=== PATIENT | male | born 1960 | race Caucasian/White ===

== ENCOUNTER 2017-10-06 07:30 | Outpatient (CLI) | payer OTHER ==
--- NOTE | 2017-10-06 09:37 | CT ---
CT LUNG CANCER SCREENING WITHOUT CONTRAST: History: 43 years of smoking in a 56-year-old male. Patient reportedly quit six months ago. Exposure: Dose 2.34 milligray with DAP of 84.70. Comparison: None. FINDINGS: No suspicious pulmonary nodule is evident. No pleural effusion is demonstrated. No pathologically enl arged lymph nodes grossly evident within the mediastinum or axillary regions. Hilar regions are diffi cult to evaluate for lymphadenopathy due to the lack of IV contrast. There is a 1.4 cm hypodensity wi thin the medial left hepatic lobe on image 190 series 2, suspicious for a small cyst. Remaining visua lized upper abdomen is unremarkable. IMPRESSION: 1. Lung Rads category 1 - negative. No suspicious nodules are demonstrated. Continued annual screenin g with low dose CT in 12 months. 2. Medial left hepatic lobe cyst. POS: JAMES
== END 2017-10-06 07:31 | disposition home or self-care (01) ==
LOC: CT 07:30
PROVIDERS: ATTEND Family Medicine
DX: F17.211 Nicotine dependence, cigarettes, in remission (principal); J44.9 Chronic obstructive pulmonary disease, unspecified; I10 Essential (primary) hypertension; K76.89 Other specified diseases of liver
CPT/HCPCS: G0297

== ENCOUNTER 2018-01-13 06:37 | Outpatient (CLI) | payer OTHER | END 2018-01-13 06:38 | disposition home or self-care (01) | LOC: BICULT 06:37 | PROVIDERS: ATTEND Family Medicine | DX: K76.89 Other specified diseases of liver (principal) | CPT/HCPCS: 76705 ==

== ENCOUNTER 2018-02-11 09:40 | Outpatient (CLI) | payer OTHER ==
[2018-02-11] MEDS ORDERED: Gadobenate Dimeglumine 529 MG/1 ML (20ML VIAL) ONE (12:12)
--- NOTE | 2018-02-11 14:42 | MRI ---
MRI OF THE ABDOMEN WITHOUT AND WITH CONTRAST: 02/11/18 COMPARISON: CT chest 10/06/17 . HISTORY: Hepatic cyst seen on prior CT of the chest. Please evaluate further. TECHNIQUE: Multiplanar and multisequence MR images were obtained of the abdomen without and with IV contrast. FINDINGS: There is a nonenhancing 1.4 cm cyst in the anterior aspect of the left lobe of the liver. A subcentim eter nonenhancing focus of high T2 signal in the right lobe of the liver likely represents a smaller cyst. There is a 4.0 cm area of high T2 signal in the left lobe of the liver. After the administratio n of contrast, this demonstrates peripheral puddling and centripetal fill-in consistent with a shawn ioma. No other liver lesions are seen. The gallbladder, kidneys, adrenal glands, spleen, and pancreas are unremarkable. No abdominal adenopa thy is seen. No marrow signal abnormality is present. IMPRESSION: 1. Hepatic hemangioma. 2. Hepatic cysts. 3. No suspicious liver lesion identified. POS: OFF
== END 2018-02-11 09:41 | disposition home or self-care (01) ==
LOC: BICMRI 09:40
PROVIDERS: ATTEND Family Medicine
DX: K76.89 Other specified diseases of liver (principal); D18.03 Hemangioma of intra-abdominal structures
CPT/HCPCS: 70210; 74183; A9579

== ENCOUNTER 2022-07-14 08:27 | Outpatient (CLI) | payer OTHER | END 2022-07-14 08:28 | disposition home or self-care (01) | LOC: BICCT 08:27 | PROVIDERS: ATTEND Student in an Organized Health Care Education/Training Program | DX: Z12.2 Encounter for screening for malignant neoplasm of respiratory organs (principal); F17.211 Nicotine dependence, cigarettes, in remission | CPT/HCPCS: 71271 ==

== ENCOUNTER 2023-03-17 07:43 | Outpatient (CLI) | payer OTHER | END 2023-03-17 07:44 | disposition home or self-care (01) | LOC: BICULT 07:43 | PROVIDERS: ATTEND Student in an Organized Health Care Education/Training Program | DX: M54.89 Other dorsalgia (principal); K76.9 Liver disease, unspecified | CPT/HCPCS: 76705 ==

== ENCOUNTER 2023-08-18 08:01 | Outpatient (CLI) | payer OTHER | END 2023-08-18 08:02 | disposition home or self-care (01) | LOC: BICCT 08:01 | PROVIDERS: ATTEND Student in an Organized Health Care Education/Training Program | DX: Z12.2 Encounter for screening for malignant neoplasm of respiratory organs (principal); R91.1 Solitary pulmonary nodule; Z87.891 Personal history of nicotine dependence | CPT/HCPCS: 71271 ==

== ENCOUNTER 2025-02-27 07:35 | Outpatient (CLI) | payer OTHER | END 2025-02-27 07:36 | disposition home or self-care (01) | LOC: BICMRI 07:35 | PROVIDERS: ATTEND Family Medicine | DX: M54.41 Lumbago with sciatica, right side (principal); G89.29 Other chronic pain; M48.061 Spinal stenosis, lumbar region without neurogenic claudication; M48.07 Spinal stenosis, lumbosacral region; Z87.81 Personal history of (healed) traumatic fracture | CPT/HCPCS: 72148 ==